=== PATIENT | male | born 1990 | race Hispanic/Latino ===

== ENCOUNTER 2018-09-15 09:41 | Emergency (ER) | payer OTHER ==
[2018-09-15 09:41] VITALS: BMI 32.8
[2018-09-15 11:03] LABS: URINE BILIRUBIN NEGATIVE (NEGATIVE); URINE BLOOD NEGATIVE (NEGATIVE); URINE GLUCOSE (UA) NEGATIVE (NEGATIVE); URINE LEUKOCYTE ESTERASE NEGATIVE Leu/uL (NEGATIVE); URINE PROTEIN NEGATIVE mg/dL (<30 mg/dL); URINE UROBILINOGEN 0.2 E.U./dL (<1 E.U./dL)
[2018-09-15 11:04] LABS: URINE APPEARANCE SLIGHT-CLOUDY (CLEAR); URINE COLOR STRAW (YELLOW)
--- NOTE | 2018-09-15 12:43 | US ---
Date of service: 09/15/2018 HISTORY: groin pain TECHNIQUE: Realtime sonography through the scrotum with color and doppler flow. COMPARISON: None Available. FINDINGS: RIGHT TESTICLE: Measures 4.7 x 2.6 x 3.0 cm. Normal echotexture and flow. RIGHT EPIDIDYMIS: Epididymal head measures 1.1 x 1.1 x 1.1 cm. Grossly unremarkable appearance with normal flow. LEFT TESTICLE: Measures 4.0 x 2.4 x 3.0 cm. Normal echotexture and flow. LEFT EPIDIDYMIS: Epididymal head measures 1.0 x 0.6 x 0.9 cm. Grossly unremarkable appearance with normal flow. HYDROCELE: Minimal right hydrocele appreciable. None is seen at the left. VARICOCELE: None. OTHER FINDINGS: Mildly enlarged lymph node right groin 2.1 x 1.0 cm with central and peripheral blood flow appreciable. IMPRESSION: No cyst or solid testicular mass identified. No evidence of testicular torsion bilaterally. The and limited right hydrocele identified. Limited lymphadenopathy right groin 2.1 x 1.0 cm lymph node, likely reactive with positive central blood flow appreciated as well as in the periphery.
[2018-09-15 13:05] VITALS: BP 109/55; PULSE 51; TEMP 98.1; O2SAT 97
[2018-09-15 13:08] VITALS: RESP 16
--- NOTE | 2018-09-15 20:27 | ED PDOC ---
Arrival/HPI - General Chief Complaint: Groin Pain Time Seen by Provider: 09/15/18 09:55 Historian: Patient - History of Present Illness Narrative History of Present Illness (Text): 28 y/o male with no significant PMH presents to the ED c/o right sided groin mass x 4-5 months. Pt states mass is soft, reduces on its on. Mild discomfort in the area today and yesterday, prompting ED visit, but the mass self-reduced on arrival. Denies fevers, chills, abdominal pain, N/V/D, testicular pain, testicular swelling, penile discharge, genital lesions, numbness, weakness, paresthesias, or any other associated complaints. Past Medical History - Provider Review Nursing Documentation Reviewed: Yes - Infectious Disease Hx of Infectious Diseases: None - Tetanus Immunization Tetanus Immunization: Unknown - Cardiac Hx Cardiac Disorders: No - Pulmonary Hx Respiratory Disorders: No - Neurological Hx Neurological Disorder: No - HEENT Hx HEENT Disorder: No - Renal Hx Renal Disorder: No - Endocrine/Metabolic Hx Endocrine Disorders: No - Hematological/Oncological Hx Blood Disorders: No - Integumentary Hx Dermatological Disorder: No - Musculoskeletal/Rheumatological Hx Musculoskeletal Disorders: No - Gastrointestinal Other/Comment: Inguinal hernia - Psychiatric Hx Psychophysiologic Disorder: No Hx Substance Use: Yes (Marijuana) - Suicidal Assessment Feels Threatened In Home Enviroment: No Family/Social History - Physician Review Nursing Documentation Reviewed: Yes Family/Social History: No Known Family HX Smoking Status: Light Smoker < 10 Cigarettes Daily Hx Alcohol Use: Yes Frequency of alcohol use: Socially Hx Substance Use: Yes (Marijuana) Hx Substance Use Treatment: No Allergies/Home Meds Allergies/Adverse Reactions: Allergies No Known Allergies Allergy (Verified 09/15/18 09:51) Home Medications: Home Meds Medication Instructions Recorded Confirmed No Known Home Med 02/14/15 09/15/18 Review of Systems - Physician Review All systems were reviewed & negative as marked: Yes - Review of Systems Constitutional: Normal. absent: Fatigue, Weight Change, Fevers, Night Sweats, Other Eyes: Normal. absent: Vision Changes, Photophobia, Eye Pain, Other ENT: Normal. absent: Hearing Changes, Tinnitus, TMJ Pain, Voice Changes, Sore Throat, Rhinorrhea, Epistaxis, Sinus Congestion, Other Respiratory: Normal. absent: SOB, Cough, Sputum, Wheezing, Other Cardiovascular: Normal. absent: Chest Pain, Palpitations, Edema, Calf Pain, SHINE, Orthopnea, SY, Syncope, Other Gastrointestinal: Normal. absent: Abdominal Pain, Stool Changes, Constipation, Diarrhea, Nausea, Vomiting, Appetite Changes, Hematochezia, Hematemesis, Anorexia, Food Intolerance, Other Genitourinary Male: Other (right intermittent groin mass and pain (-) testicular pain or swelling). absent: Dysuria, Frequency, Hematuria Musculoskeletal: Normal. absent: Arthralgias, Back Pain, Neck Pain, Joint Swelling, Myalgias, Other Skin: Normal. absent: Rash, Pruritis, Skin Lesions, Laceration, Abscess, Ulcer, Cellulitis, Other Neurological: Normal. absent: Headache, Dizziness, Focal Weakness, Gait Changes, Speech Changes, SC, Facial Droop, DE, Disequilibrium, SE, Seizure, Other Endocrine: Normal. absent: Diaphoresis, Polyuria, Polydipsia, Other Hemo/Lymphatic: Normal Psychiatric: Normal Physical Exam Vital Signs Reviewed: Yes Vital Signs Temp Pulse Resp BP Pulse Ox 09/15/18 13:07 98.1 F 51 L 16 109/55 L 97 09/15/18 13:05 98.1 F 51 L 18 109/55 L 97 09/15/18 09:48 98.2 F 58 L 18 166/99 H 99 Temperature: Afebrile Blood Pressure: Hypertensive Pulse: Regular Respiratory Rate: Normal Appearance: Positive for: Well-Appearing, Non-Toxic, Comfortable Pain Distress: None Mental Status: Positive for: Alert and Oriented X 3 - Systems Exam Head: Present: Atraumatic, Normocephalic Pupils: Present: PERRL Extroacular Muscles: Present: EOMI Conjunctiva: Present: Normal Mouth: Present: Moist Mucous Membranes Nose (External): Present: Atraumatic Nose (Internal): Present: Normal Inspection, Moist Neck: Present: Normal Range of Motion. No: Meningeal Signs, MIDLINE TENDERNESS, Lymphadenopathy Respiratory/Chest: Present: Clear to Auscultation, Good Air Exchange. No: Respiratory Distress, Accessory Muscle Use Cardiovascular: Present: Regular Rate and Rhythm, Normal S1, S2, Peripheal Pulses Present. No: Murmurs Abdomen: Present: Normal Bowel Sounds. No: Tenderness, Distention, Peritoneal Signs, Rebound, Guarding, McBurney's Point Tender, Rovsing's Sign Present, Hernias, Mass/Organomegaly, Scars Genitourinary Male: Present: Normal External Genitalia, Other (right groin fullness, soft, nontender). No: Lesions, Penile Discharge, Testicle Tenderness, Penile Swelling, Masses, Erythema, Hernias (unable to appreciate hernia), Testicle Swelling Back: Present: Normal Inspection. No: CVA Tenderness Upper Extremity: Present: Normal Inspection, Normal ROM, NORMAL PULSES, [place] rovascularly Intact, Capillary Refill < 2s. No: Cyanosis, Edema Lower Extremity: Present: Normal Inspection, NORMAL PULSES, Normal ROM, Neurovascularly Intact, Capillary Refill < 2 s. No: Edema Neurological: Present: GCS=15, CN II-XII Intact, Speech Normal, Motor Func Grossly Intact, Normal Sensory Function, Gait Normal Skin: Present: Warm, Dry, Normal Color. No: Rashes Lymphatic: No: Cervical Adenopathy Psychiatric: Present: Alert, Oriented x 3, Normal Insight, Normal Concentration, Normal Affect, Normal Mood Medical Decision Making ED Course and Treatment: Initial Plan: * Testicular Ultrasound * UA Workup unremarkable. Dr. Bundy evaluated and examined patient at bedside, unable to appreciate hernia, although right groin fullness is noted. Discussed at length signs of incarcerated and strangulated hernia. Patient verbalized understanding and understands need for emergent return if this occurs. Otherwise, patient advised to followup outpatient with general surgeon. Diagnostic testing results and plan of care discussed with patient, and strict instructions given regarding importance of follow up, and signs to return to Emergency Department, to include irreducible hernia, abdominal pain, N/V, fever, or any other new/worsening symptoms. Patient verbalizes understanding of discussion. Patient A&Ox3, ambulating with steady gait, stable for discharge home. - Lab Interpretations Lab Results: Lab Results 09/15/18 10:50: Urine Color Straw, Urine Appearance Slight-cloudy, Urine pH 7.0, Ur Specific [place] 1.010, Urine Protein Negative, Urine Glucose (UA) Negative, Urine Ketones Negative, Urine Blood Negative, Urine Nitrate Negative, Urine Bilirubin Negative, Urine Urobilinogen 0.2, Ur Leukocyte Esterase Negative I have reviewed the lab results: Yes Interpretation: All labs normal - RAD Interpretation Narrative RAD Interpretations (Text): Testes Ultrasound: FINDINGS: RIGHT TESTICLE: Measures 4.7 x 2.6 x 3.0 cm. Normal echotexture and flow. RIGHT EPIDIDYMIS: Epididymal head measures 1.1 x 1.1 x 1.1 cm. Grossly unremarkable appearance with normal flow. LEFT TESTICLE: Measures 4.0 x 2.4 x 3.0 cm. Normal echotexture and flow. LEFT EPIDIDYMIS: Epididymal head measures 1.0 x 0.6 x 0.9 cm. Grossly unremarkable appearance with normal flow. HYDROCELE: Minimal right hydrocele appreciable. None is seen at the left. VARICOCELE: None. OTHER FINDINGS: Mildly enlarged lymph node right groin 2.1 x 1.0 cm with central and peripheral blood flow appreciable. IMPRESSION: No cyst or solid testicular mass identified. No evidence of testicular torsion bilaterally. The and limited right hydrocele identified. Limited lymphad enopathy right groin 2.1 x 1.0 cm lymph node, likely reactive with positive central blood flow appreciated as well as in the periphery. Radiology Orders: 09/15/18 10:11 TESTES DUPLEX COMPLETE [US] Stat Disposition/Present on Arrival - Present on Arrival Any Indicators Present on Arrival: No History of DVT/PE: No History of Uncontrolled Diabetes: No Urinary Catheter: No History of Decub. Ulcer: No History Surgical Site Infection Following: None - Disposition Have Diagnosis and Disposition been Completed?: Yes Diagnosis: Reducible right inguinal hernia Disposition: HOME/ ROUTINE Disposition Time: 12:45 Patient Plan: Discharge Condition: STABLE Discharge Instructions (ExitCare): Inguinal and Femoral (Groin) Hernias, Hernia Repair (DC) Additional Instructions: No heavy lifting > 10 pounds Followup with primary doctor within 2 days Followup with general surgeon within 2 days Return to ER for nausea, vomiting, fever, irreducible hernia or any other new/worsening symptoms Referrals: Scotty Palacio MD [Medical Doctor] - Follow up with primary Forms: [employer] (J[place]ican), WORK NOTE
== END 2018-09-15 13:07 | disposition home or self-care (01) ==
LOC: ED 09:41
DX: K40.90 Unilateral inguinal hernia, without obstruction or gangrene, not specified as recurrent (principal); F17.210 Nicotine dependence, cigarettes, uncomplicated